=== PATIENT | female | born 1940 | race Caucasian/White ===

== ENCOUNTER 2016-09-21 23:17 | Emergency (ER) | payer OTHER, MEDICAID ==
[2016-09-22 00:44] LABS: BASOPHIL % 0.4 % (0-2); PLATELET COUNT 191 x10^3mcL (130-400)
[2016-09-22 00:46] LABS: RED CELL DISTRIBUTION WIDTH 15.4 % (11.5-14.5)
[2016-09-22 00:58] LABS: CALCIUM 9.2 mg/dL (8.5-10.1); CARBON DIOXIDE 26.6 mmol/L (21-32); CHLORIDE SERUM 101 mmol/L (98-107); CREATININE SERUM 0.7 mg/dL (0.6-1.0); GLUCOSE SERUM 210 mg/dL (74-106); POTASSIUM SERUM 4.4 mmol/L (3.5-5.1); SODIUM SERUM 135 mmol/L (136-145)
[2016-09-22 01:02] LABS: ALKALINE PHOSPHATASE 93 U/L (46-116); ALT/SGPT 12 U/L (14-59); AMYLASE 31 U/L (25-115); AST/SGOT 15 U/L (15-37); BILIRUBIN TOTAL 0.5 mg/dL (0.20-1.00); LIPASE 59 IU/L (73-393); TOTAL PROTEIN, SERUM 6.6 g/dL (6.4-8.2)
[2016-09-22 01:03] LABS: ALBUMIN 3.3 g/dL (3.4-5.0)
[2016-09-22 01:56] VITALS: BP 122/65
== END 2016-09-22 01:56 | disposition home or self-care (01) ==
LOC: ED 23:17
PROVIDERS: Emergency Medicine
DX: K52.9 Noninfective gastroenteritis and colitis, unspecified (principal); I10 Essential (primary) hypertension; E11.9 Type 2 diabetes mellitus without complications; Z79.4 Long term (current) use of insulin; Z79.899 Other long term (current) drug therapy
CPT/HCPCS: 83880; J1885; J7030

== ENCOUNTER 2020-01-31 15:16 | Emergency (ER) | payer OTHER, MEDICAID ==
[2020-01-31 20:05] VITALS: BP 117/60
== END 2020-01-31 20:05 | disposition home or self-care (01) ==
LOC: ED 15:16
DX: K83.9 Disease of biliary tract, unspecified (principal); E11.9 Type 2 diabetes mellitus without complications
CPT/HCPCS: J1885; J2405; Q0092